=== PATIENT | female | born 1945 | race African-American/Black ===

== ENCOUNTER 2017-02-14 13:28 | Emergency (ER) | payer MEDICARE, OTHER ==
--- NOTE | 2017-02-14 14:20 | ULT ---
VENOUS DOPPLER ULTRASOUND OF THE LEFT LOWER EXTREMITY: Date: 02/14/17 HISTORY: Left leg edema and pain. TECHNIQUE: Wooten scale ultrasound with color flow and spectral Doppler imaging of the deep venous system of the left lower extremity was performed. FINDINGS: There is good flow, compression, and augmentation noted in the left common femoral, femoral, deep fe moral, popliteal, posterior tibial, and greater saphenous veins. IMPRESSION: No evidence of deep venous thrombosis in the left lower extremity. POS: MICHELL
== END 2017-02-14 14:27 | disposition home or self-care (01) ==
LOC: ERS 13:28
DX: L03.116 Cellulitis of left lower limb (principal); M10.9 Gout, unspecified; M19.90 Unspecified osteoarthritis, unspecified site; I11.0 Hypertensive heart disease with heart failure; I50.9 Heart failure, unspecified; G89.29 Other chronic pain; M25.562 Pain in left knee; Z79.82 Long term (current) use of aspirin; Z79.899 Other long term (current) drug therapy

== ENCOUNTER 2019-06-05 11:23 | Outpatient (CLI) | payer MEDICARE ==
--- NOTE | 2019-06-05 12:29 | MMO ---
Bilateral MAMMO Bilat Screen [facility]. CLINICAL HISTORY: Patient is 73 years old and is seen for screening. VIEWS: The views performed were: bilateral craniocaudal with tomosynthesis and bilateral mediolateral oblique with tomosynthesis. This study has been interpreted with the assistance of computer-aided detection. MAMMOGRAM FINDINGS: There are scattered fibroglandular densities. There are vascular calcifications seen in both breasts. There are no suspicious masses, suspicious calcifications, or new areas of architectural distortion. IMPRESSION: A ROUTINE FOLLOW-UP MAMMOGRAM IN 1 YEAR IS RECOMMENDED. THE RESULTS OF THIS EXAM WERE SENT TO THE PATIENT. ACR BI-RADS Category 2 - Benign finding MAMMOGRAPHY NOTE: 1. A negative mammogram report should not delay a biopsy if a dominant of clinically suspicious mass is present. 2. Approximately 10% to 15% of breast cancers are not detected by mammography. 3. Adenosis and dense breasts may obscure an underlying neoplasm. Reported by: QUIANA MAIER MD Electonically Signed: [id number]
== END 2019-06-05 11:24 | disposition home or self-care (01) ==
LOC: BICMAMMO 11:23
PROVIDERS: ATTEND Family Medicine
DX: Z12.31 Encounter for screening mammogram for malignant neoplasm of breast (principal)
CPT/HCPCS: 77063; 77067

== ENCOUNTER 2019-12-23 11:12 | Outpatient (CLI) | payer MEDICARE ==
--- NOTE | 2019-12-23 11:32 | RAD ---
Right knee:2 views INDICATIONS:Knee pain COMPARISON:None FINDINGS: Mild narrowing of medial joint space. Mild medial osteophytes. Mild osteophytes from the posterior pa tella. No joint effusion. No soft tissue abnormality. IMPRESSION: Mild degenerative changes as described
--- NOTE | 2019-12-23 11:49 | ULT ---
EXAM: Right lower extremity venous duplex: Deep veins evaluated with color Doppler, spectral analysis, and compression. INDICATIONS: Right lower extremity pain and edema. FINDINGS: Deep veins interrogated include common femoral vein, femoral vein, popliteal vein, and post erior tibial vein. These veins show normal compression and blood flow. No evidence of DVT. IMPRESSION: Negative Right venous duplex exam.
== END 2019-12-23 11:13 | disposition home or self-care (01) ==
LOC: RAD 11:12
PROVIDERS: ATTEND Family Medicine
DX: M25.561 Pain in right knee (principal); M79.89 Other specified soft tissue disorders; M17.11 Unilateral primary osteoarthritis, right knee

== ENCOUNTER 2021-04-04 05:57 | Observation (INO) | payer MEDICARE ==
[2021-04-04 06:41] VITALS: BMI 29.2
[2021-04-04] MEDS ORDERED: Ondansetron PF 4 MG/2 ML Vial IVP PRN (07:40)
[2021-04-04] MEDS ORDERED: HYDROcodone/Acetaminophen 5/325 mg Tablet PO PRN (07:40)
[2021-04-04] MEDS ORDERED: Acetaminophen 325 MG TAB PO PRN (07:40)
[2021-04-04] MEDS: Sodium Chloride 0.9% 1,000 ML IV SCH (12:38)
[2021-04-04 14:29] LABS: SARS-CoV-2 PCR by NAA Not Detected (NotDetected)
[2021-04-04] MEDS: Tamsulosin HCl 0.4 MG CAP PO SCH (22:13)
[2021-04-05 04:55] LABS: #Basophils 0.1 thou/uL (0.0-0.2); #Eosinphils 0.1 thou/uL (0.0-0.7); #Lymphocytes 2.7 thou/uL (1.20-3.40); #Monocytes 0.6 thou/uL (0.11-0.59); #Neutrophils 4.4 thou/uL (1.40-6.50); %Eosinophils 1.6 % (0.0-10.0); %Lymphocytes 34.2 % (21.0-51.0); %Monocytes 7.3 % (0.0-10.0); Mean Corpuscular HGB CONC 31.3 g/dL (32.0-36.0); Mean Corpuscular Hemoglobin 31.1 pg (27.0-31.0); Mean Corpuscular Volume 99.2 fL (78.0-98.0); Mean Platelet Volume 7.2 fL (7.4-10.4); Platelet Count 228 thou/uL (130-400); RBC Distribution Width 12.9 % (11.5-14.5); Red Blood Cell (RBC) Count 3.55 mill/uL (4.20-5.40); White Blood Cell (WBC) Count 7.8 thou/uL (4.8-10.8)
[2021-04-05 05:15] LABS: Anion Gap 11 mmol/L (10-20); BUN (Urea Nitrogen) 13 mg/dL (9.8-20.1); Calc. Creatinine Clearance 83 mL/min (70-130); Carbon Dioxide 24 mmol/L (23-31); Chloride 108 mmol/L (98-107); Potassium 3.4 mmol/L (3.5-5.1); Sodium 140 mmol/L (136-145)
[2021-04-05 05:16] LABS: Calcium 9.2 mg/dL (7.8-10.44); Glucose 79 mg/dL (83-110)
[2021-04-05] MEDS ORDERED: Potassium Chloride 20 MEQ TAB PO SCH (08:30)
[2021-04-05] MEDS: Sodium Chloride 0.9% 1,000 ML IV SCH (09:01)
[2021-04-05] MEDS ORDERED: Betamet Acet/Betamet Na Ph 30 MG/5 ML VIAL ONE (13:51)
[2021-04-05] MEDS ORDERED: Bupivacaine PF 0.5% 30 ML VIAL ONE (13:51)
[2021-04-05] MEDS ORDERED: Bacitracin Zinc Ointment 30 gm TUBE ONE (13:51)
[2021-04-05] MEDS ORDERED: Neomycin-Polymyxin 1 ML AMP ONE (13:51)
[2021-04-05] MEDS: Tamsulosin HCl 0.4 MG CAP PO SCH (19:53)
[2021-04-06 04:49] LABS: #Eosinphils 0.2 thou/uL (0.0-0.7); #Lymphocytes 2.3 thou/uL (1.20-3.40); #Monocytes 0.6 thou/uL (0.11-0.59); #Neutrophils 4.2 thou/uL (1.40-6.50); %Basophils 0.5 % (0.0-1.0); %Eosinophils 2.9 % (0.0-10.0); %Lymphocytes 31.3 % (21.0-51.0); %Monocytes 8.7 % (0.0-10.0); %Neutrophils 56.6 % (42.0-75.0); Hemoglobin 11.1 g/dL (12.0-16.0); Mean Corpuscular HGB CONC 33.5 g/dL (32.0-36.0); Mean Corpuscular Hemoglobin 32.8 pg (27.0-31.0); Mean Platelet Volume 7.2 fL (7.4-10.4); Platelet Count 209 thou/uL (130-400); RBC Distribution Width 12.6 % (11.5-14.5); Red Blood Cell (RBC) Count 3.38 mill/uL (4.20-5.40); White Blood Cell (WBC) Count 7.3 thou/uL (4.8-10.8)
[2021-04-06 05:08] LABS: Anion Gap 11 mmol/L (10-20); BUN (Urea Nitrogen) 14 mg/dL (9.8-20.1); Calc. Creatinine Clearance 90 mL/min (70-130); Calcium 8.9 mg/dL (7.8-10.44); Carbon Dioxide 25 mmol/L (23-31); Chloride 108 mmol/L (98-107); Glucose 80 mg/dL (83-110); Potassium 3.6 mmol/L (3.5-5.1); Sodium 140 mmol/L (136-145)
[2021-04-06 12:10] VITALS: BP 138/70; TEMP 98.4
== END 2021-04-06 14:20 | disposition home or self-care (01) ==
LOC: 2SW 05:58
PROVIDERS: ADMIT Internal Medicine; ATTEND Hospitalist
DX: N13.2 Hydronephrosis with renal and ureteral calculous obstruction (principal); R94.31 Abnormal electrocardiogram [ECG] [EKG]; E87.2 Acidosis; M19.90 Unspecified osteoarthritis, unspecified site; I25.10 Atherosclerotic heart disease of native coronary artery without angina pectoris; I44.0 Atrioventricular block, first degree; Z79.899 Other long term (current) drug therapy; Z95.0 Presence of cardiac pacemaker; Z20.822 Contact with and (suspected) exposure to COVID-19
CPT/HCPCS: 80048 ×2; 85025 ×2; G0378 ×3; U0003; U0005; 36415; J0702; J7050; S0020

== ENCOUNTER 2022-03-29 09:30 | Inpatient (IN) | payer MEDICARE ==
[2022-03-29] MEDS ORDERED: Potassium Chloride 20 MEQ TAB PO SCH ×2 (10:45→17:00)
[2022-03-29] MEDS ORDERED: Senokot S 8.6-50 MG TAB PO PRN (10:49)
[2022-03-29] MEDS ORDERED: Calcium Carbonate 500 MG ChewTAB PO PRN (10:49)
[2022-03-29] MEDS ORDERED: Ondansetron ODT 4 MG TAB PO PRN (10:49)
[2022-03-29] MEDS ORDERED: Ondansetron PF 4 MG/2 ML Vial IVP PRN (10:49)
[2022-03-29] MEDS ORDERED: Nitroglycerin 0.4 MG TAB (25 Tab Bottle) SL PRN (10:52)
[2022-03-29] MEDS ORDERED: hydrALAZINE 25 MG TAB PO PRN (10:53)
[2022-03-29] MEDS ORDERED: Melatonin 3 MG TAB PO PRN (12:23)
[2022-03-29] MEDS ORDERED: K-Phos Neutral 250 MG TAB PO SCH (12:30)
[2022-03-29] MEDS ORDERED: FLU VACC QS2022-23(65YR UP)/PF 240 MCG/0.7 ML SYRINGE IM ONE (13:00)
[2022-03-29 16:28] LABS: Bacteria/HPF None Seen HPF (None Seen); Bilirubin Negative (Negative); Blood, Urine Negative (Negative); Clarity Clear (Clear); Glucose, Urine (Dipstick) Normal (Negative); Ketone, Urine Negative (Negative); Leukocyte 75 Leu/uL (Negative); Nitrite Negative (Negative); Protein, Urine (Dipstick) 10 mg/dL (Neg-Trace); RBC/HPF 0-3 HPF (0-3); Specific Gravity, Urine 1.027 (1.002-1.036); Urine Culture Reflex No No
[2022-03-29] MEDS ORDERED: Calcium Carbonate 600 MG + Vit D TAB PO SCH (17:00)
[2022-03-29] MEDS: K-Phos Neutral 250 MG TAB PO SCH (18:01)
[2022-03-29] MEDS: Pregabalin 75 MG CAP PO SCH (20:07)
[2022-03-29] MEDS: Acetaminophen 325 MG TAB PO PRN (23:30)
[2022-03-30 06:11] LABS: #Basophils 0.1 thou/uL (0.0-0.2); #Eosinphils 0.3 thou/uL (0.0-0.7); #Lymphocytes 2.4 thou/uL (1.20-3.40); #Monocytes 0.6 thou/uL (0.11-0.59); #Neutrophils 4.5 thou/uL (1.40-6.50); %Basophils 0.7 % (0.0-1.0); %Eosinophils 3.2 % (0.0-10.0); %Lymphocytes 30.9 % (21.0-51.0); %Monocytes 7.4 % (0.0-10.0); %Neutrophils 57.8 % (42.0-75.0); Hemoglobin 11.7 g/dL (12.0-16.0); Mean Corpuscular HGB CONC 31.1 g/dL (32.0-36.0); Mean Corpuscular Hemoglobin 31.7 pg (27.0-31.0); Mean Platelet Volume 7.7 fL (7.4-10.4); Platelet Count 212 10x3/uL (130-400); RBC Distribution Width 12.7 % (11.5-14.5); Red Blood Cell (RBC) Count 3.68 mill/uL (4.20-5.40); White Blood Cell (WBC) Count 7.8 10x3/uL (4.8-10.8)
[2022-03-30 06:31] LABS: Anion Gap 10 mmol/L (10-20); BUN (Urea Nitrogen) 22 mg/dL (9.8-20.1); Calc. Creatinine Clearance 68 mL/min (70-130); Calcium 9.1 mg/dL (7.8-10.44); Carbon Dioxide 27 mmol/L (23-31); Chloride 109 mmol/L (98-107); Estimated GFR 61; Glucose 96 mg/dL (83-110); Potassium 3.4 mmol/L (3.5-5.1); Sodium 143 mmol/L (136-145)
[2022-03-30] MEDS: Acetaminophen 325 MG TAB PO PRN (08:37)
[2022-03-30] MEDS: Allopurinol 100 MG TAB PO SCH (08:38)
[2022-03-30] MEDS: Pregabalin 75 MG CAP PO SCH ×2 (08:40→20:18)
[2022-03-30] MEDS: K-Phos Neutral 250 MG TAB PO SCH (08:40)
[2022-03-30] MEDS: Aspirin 81 mg Enteric Coated Tablet PO SCH (08:40)
[2022-03-30] MEDS: Multivit, Therapeutic 1 TAB PO SCH (08:41)
[2022-03-30] MEDS: Cyanocobalamin (Vitamin B-12) 1,000 MCG TAB PO SCH (08:41)
[2022-03-30] MEDS: Cholecalciferol 1,000 UNITS (25 MCG) TAB PO SCH (08:41)
[2022-03-30] MEDS ORDERED: Aspirin Chewable 81 MG TAB PO SCH (09:00)
[2022-03-30 13:48] VITALS: BMI 30.3
[2022-03-30] MEDS: cefTRIAXone\\ROCEPHIN 1 GM in Sodium Chloride 0.9% 100 ML IVPB SCH (17:55)
[2022-03-30] MEDS: Enoxaparin Sodium 40 MG/0.4 ML SYRINGE SC SCH (20:18)
[2022-03-31 04:57] LABS: #Eosinphils 0.2 thou/uL (0.0-0.7); #Lymphocytes 2.7 thou/uL (1.20-3.40); #Monocytes 0.6 thou/uL (0.11-0.59); #Neutrophils 4.8 thou/uL (1.40-6.50); %Basophils 0.5 % (0.0-1.0); %Eosinophils 2.8 % (0.0-10.0); %Lymphocytes 32.1 % (21.0-51.0); %Monocytes 6.6 % (0.0-10.0); Hemoglobin 10.8 g/dL (12.0-16.0); Mean Corpuscular HGB CONC 31.4 g/dL (32.0-36.0); Mean Corpuscular Hemoglobin 31.7 pg (27.0-31.0); Mean Platelet Volume 7.5 fL (7.4-10.4); Platelet Count 209 10x3/uL (130-400); RBC Distribution Width 12.6 % (11.5-14.5); Red Blood Cell (RBC) Count 3.42 mill/uL (4.20-5.40); White Blood Cell (WBC) Count 8.3 10x3/uL (4.8-10.8)
[2022-03-31 05:16] LABS: ALT (SGPT) Less than 7 U/L (8-55); AST (SGOT) 13 U/L (5-34); Albumin 3.5 g/dL (3.4-4.8); Alkaline Phosphatase 86 U/L (40-110); Anion Gap 14 mmol/L (10-20); BUN (Urea Nitrogen) 19 mg/dL (9.8-20.1); Bilirubin, Total 0.5 mg/dL (0.2-1.2); Calc. Creatinine Clearance 79 mL/min (70-130); Calcium 8.9 mg/dL (7.8-10.44); Carbon Dioxide 22 mmol/L (23-31); Chloride 107 mmol/L (98-107); Estimated GFR 73; Globulin 3.3 g/dL (2.4-3.5); Glucose 102 mg/dL (83-110); Phosphorus 3.7 mg/dL (2.3-4.7); Potassium 3.6 mmol/L (3.5-5.1); Protein, Total 6.8 g/dL (5.8-8.1); Sodium 139 mmol/L (136-145)
[2022-03-31] MEDS: Aspirin 81 mg Enteric Coated Tablet PO SCH (08:12)
[2022-03-31] MEDS: Cholecalciferol 1,000 UNITS (25 MCG) TAB PO SCH (08:12)
[2022-03-31] MEDS: Cyanocobalamin (Vitamin B-12) 1,000 MCG TAB PO SCH (08:12)
[2022-03-31] MEDS: Allopurinol 100 MG TAB PO SCH (08:12)
[2022-03-31] MEDS: Pregabalin 75 MG CAP PO SCH ×2 (08:13→20:45)
[2022-03-31] MEDS: Multivit, Therapeutic 1 TAB PO SCH (08:13)
[2022-03-31] MEDS: cefTRIAXone\\ROCEPHIN 1 GM in Sodium Chloride 0.9% 100 ML IVPB SCH (17:14)
[2022-03-31] MEDS: Enoxaparin Sodium 40 MG/0.4 ML SYRINGE SC SCH (20:46)
[2022-04-01 05:01] LABS: #Eosinphils 0.3 thou/uL (0.0-0.7); #Lymphocytes 2.7 thou/uL (1.20-3.40); #Monocytes 0.6 thou/uL (0.11-0.59); #Neutrophils 4.6 thou/uL (1.40-6.50); %Basophils 0.6 % (0.0-1.0); %Eosinophils 3.5 % (0.0-10.0); %Lymphocytes 33.3 % (21.0-51.0); %Monocytes 7.1 % (0.0-10.0); %Neutrophils 55.6 % (42.0-75.0); Mean Corpuscular HGB CONC 31.9 g/dL (32.0-36.0); Mean Corpuscular Hemoglobin 32.2 pg (27.0-31.0); Mean Platelet Volume 7.6 fL (7.4-10.4); Platelet Count 212 10x3/uL (130-400); RBC Distribution Width 12.5 % (11.5-14.5); Red Blood Cell (RBC) Count 3.43 mill/uL (4.20-5.40); White Blood Cell (WBC) Count 8.2 10x3/uL (4.8-10.8)
[2022-04-01 05:46] LABS: ALT (SGPT) Less than 7 U/L (8-55); AST (SGOT) 12 U/L (5-34); Albumin 3.5 g/dL (3.4-4.8); Alkaline Phosphatase 78 U/L (40-110); Anion Gap 9 mmol/L (10-20); BUN (Urea Nitrogen) 16 mg/dL (9.8-20.1); Bilirubin, Total 0.5 mg/dL (0.2-1.2); Calc. Creatinine Clearance 83 mL/min (70-130); Calcium 9.4 mg/dL (7.8-10.44); Carbon Dioxide 25 mmol/L (23-31); Chloride 109 mmol/L (98-107); Estimated GFR 77; Globulin 3.2 g/dL (2.4-3.5); Glucose 92 mg/dL (83-110); Potassium 3.8 mmol/L (3.5-5.1); Protein, Total 6.7 g/dL (5.8-8.1); Sodium 139 mmol/L (136-145)
[2022-04-01] MEDS: Multivit, Therapeutic 1 TAB PO SCH (09:36)
[2022-04-01] MEDS: Aspirin 81 mg Enteric Coated Tablet PO SCH (09:36)
[2022-04-01] MEDS: Cholecalciferol 1,000 UNITS (25 MCG) TAB PO SCH (09:36)
[2022-04-01] MEDS: Cyanocobalamin (Vitamin B-12) 1,000 MCG TAB PO SCH (09:36)
[2022-04-01] MEDS: Allopurinol 100 MG TAB PO SCH (09:36)
[2022-04-01] MEDS: Pregabalin 75 MG CAP PO SCH (09:36)
[2022-04-01 12:47] VITALS: BP 139/67; TEMP 97.6
== END 2022-04-01 15:29 | disposition home or self-care (01) | DRG 309 ==
LOC: 2SW 10:32 → OBSVTOIN 03-31 12:25
PROVIDERS: ADMIT Internal Medicine; ATTEND Hospitalist
DX: I48.0 Paroxysmal atrial fibrillation (principal); N39.0 Urinary tract infection, site not specified; I47.29 Other ventricular tachycardia; Z20.822 Contact with and (suspected) exposure to COVID-19; I10 Essential (primary) hypertension; M10.9 Gout, unspecified; D64.9 Anemia, unspecified; E87.6 Hypokalemia; I49.5 Sick sinus syndrome; R29.6 Repeated falls; Z95.0 Presence of cardiac pacemaker; Z79.899 Other long term (current) drug therapy
CPT/HCPCS: 36415; 70450; 70496; 80048; 80053; 81001; 83735; 84100; 85025; 87086; 90471; 90732; 94760; G0009; J0696; J1650; J3490; U0003; U0005

== ENCOUNTER 2023-07-11 09:34 | Observation (INO) | payer MEDICARE ==
[2023-07-11] MEDS ORDERED: Acetaminophen 500 MG TAB ONE (11:19)
[2023-07-11] MEDS ORDERED: Metoclopramide HCl 10 MG (2 mL) VIAL ONE (11:19)
[2023-07-11] MEDS ORDERED: diphenhydrAMINE 50 MG/ML VIAL ONE (11:19)
[2023-07-11] MEDS ORDERED: Aspirin Chewable 81 MG TAB ONE (11:20)
[2023-07-11] MEDS ORDERED: Acetaminophen 650 MG Suppository PR PRN (11:41)
[2023-07-11] MEDS ORDERED: Ondansetron PF 4 MG/2 ML Vial IVP PRN (11:41)
[2023-07-11] MEDS ORDERED: Ondansetron ODT 4 MG TAB PO PRN (11:41)
[2023-07-11] MEDS ORDERED: hydrALAZINE 20 MG/ML VIAL SLOW IVP PRN (11:42)
[2023-07-11 15:58] VITALS: BMI 28.9
[2023-07-11] MEDS: Acetaminophen 325 MG TAB PO PRN (21:18)
[2023-07-11] MEDS: Atorvastatin Calcium 40 MG TAB PO SCH (21:19)
[2023-07-12 06:31] LABS: #Eosinphils 0.2 thou/uL (0.0-0.7); #Monocytes 0.5 thou/uL (0.11-0.59); %Basophils 0.5 % (0.0-1.0); %Eosinophils 2.2 % (0.0-10.0); %Lymphocytes 37.5 % (21.0-51.0); %Neutrophils 52.7 % (42.0-75.0); Hematocrit 33.6 % (36.0-47.0); Hemoglobin 10.5 g/dL (12.0-16.0); Mean Corpuscular HGB CONC 31.3 g/dL (32.0-36.0); Mean Corpuscular Hemoglobin 31.2 pg (27.0-31.0); Mean Corpuscular Volume 99.7 fl (78.0-98.0); Mean Platelet Volume 10.2 fL (7.4-10.4); Platelet Count 210 10x3/uL (130-400); RBC Distribution Width 13.7 % (11.5-14.5); Red Blood Cell (RBC) Count 3.37 mill/uL (4.20-5.40); White Blood Cell (WBC) Count 7.6 10x3/uL (4.8-10.8)
[2023-07-12 07:00] LABS: Anion Gap 8 mmol/L (10-20); BUN (Urea Nitrogen) 20 mg/dL (9.8-20.1); Calc. Creatinine Clearance 76 mL/min (70-130); Calcium 8.9 mg/dL (7.8-10.44); Carbon Dioxide 25 mmol/L (23-31); Cardiac Risk 3.2 (Less than 4.5); Chloride 109 mmol/L (98-107); Cholesterol 150 mg/dl (< 200 Desired); Estimated GFR 73; Glucose 79 mg/dL (83-110); HDL Cholesterol 47 mg/dL (>60 Neg Risk); LDL Cholesterol, Calculated 90 mg/dL; Potassium 3.3 mmol/L (3.5-5.1); Sodium 139 mmol/L (136-145); Triglycerides 67 mg/dL (Less than 150)
[2023-07-12] MEDS: Allopurinol 100 MG TAB PO SCH (08:58)
[2023-07-12] MEDS: Aspirin 81 mg Enteric Coated Tablet PO SCH (08:58)
[2023-07-13 07:01] LABS: #Eosinphils 0.3 thou/uL (0.0-0.7); #Monocytes 0.5 thou/uL (0.11-0.59); %Basophils 0.5 % (0.0-1.0); %Eosinophils 3.5 % (0.0-10.0); %Lymphocytes 37.8 % (21.0-51.0); %Monocytes 6.8 % (0.0-10.0); Hematocrit 34.6 % (36.0-47.0); Hemoglobin 10.8 g/dL (12.0-16.0); Mean Corpuscular HGB CONC 31.2 g/dL (32.0-36.0); Mean Corpuscular Hemoglobin 31.3 pg (27.0-31.0); Mean Corpuscular Volume 100.3 fl (78.0-98.0); Mean Platelet Volume 9.9 fL (7.4-10.4); Platelet Count 213 10x3/uL (130-400); RBC Distribution Width 13.6 % (11.5-14.5); Red Blood Cell (RBC) Count 3.45 mill/uL (4.20-5.40); White Blood Cell (WBC) Count 7.9 10x3/uL (4.8-10.8)
[2023-07-13 07:21] LABS: Anion Gap 12 mmol/L (10-20); BUN (Urea Nitrogen) 17 mg/dL (9.8-20.1); Calc. Creatinine Clearance 78 mL/min (70-130); Calcium 9.1 mg/dL (7.8-10.44); Carbon Dioxide 25 mmol/L (23-31); Chloride 108 mmol/L (98-107); Estimated GFR 75; Glucose 86 mg/dL (83-110); Potassium 3.8 mmol/L (3.5-5.1); Sodium 141 mmol/L (136-145)
[2023-07-13 11:39] VITALS: BP 135/80; TEMP 97.1
== END 2023-07-13 13:40 | disposition home or self-care (01) ==
LOC: ERS 09:34 → ERHOLD 11:18 → 2SE 19:46
PROVIDERS: ADMIT Internal Medicine; ATTEND Family Medicine
DX: R29.90 Unspecified symptoms and signs involving the nervous system (principal); R53.1 Weakness; D64.9 Anemia, unspecified; G43.909 Migraine, unspecified, not intractable, without status migrainosus; M15.9 Polyosteoarthritis, unspecified; Z79.899 Other long term (current) drug therapy; Z95.0 Presence of cardiac pacemaker; Z79.82 Long term (current) use of aspirin
CPT/HCPCS: 70551; 80048 ×2; 80061; 84443; 85025 ×2; 93005; 93306; 93880; 96374; 96375; 97116; 97535; 99285; G0378 ×4; 36415; J1200; J2765